=== PATIENT | female | born 1975 | race Caucasian/White ===

== ENCOUNTER 2023-09-18 15:28 | Inpatient (IN) | payer OTHER, SELFPAY ==
[2023-09-18 17:03] LABS: #Basophils 0.1 thou/uL (0.0-0.2); #Eosinphils 0.3 thou/uL (0.0-0.7); #Monocytes 0.4 thou/uL (0.11-0.59); #Neutrophils 3.3 thou/uL (1.40-6.50); %Basophils 0.9 % (0.0-1.0); %Eosinophils 5.2 % (0.0-10.0); %Lymphocytes 30.1 % (21.0-51.0); %Monocytes 6.4 % (0.0-10.0); %Neutrophils 57.2 % (42.0-75.0); Hematocrit 39.3 % (36.0-47.0); Hemoglobin 13.1 g/dL (12.0-16.0); Mean Corpuscular HGB CONC 33.3 g/dL (32.0-36.0); Mean Corpuscular Hemoglobin 32.2 pg (27.0-31.0); Mean Corpuscular Volume 96.6 fl (78.0-98.0); Mean Platelet Volume 8.5 fL (7.4-10.4); Platelet Count 301 10x3/uL (130-400); Red Blood Cell (RBC) Count 4.07 mill/uL (4.20-5.40); White Blood Cell (WBC) Count 5.8 10x3/uL (4.8-10.8)
[2023-09-18 17:11] LABS: BHCG - Serum Negative (NEGATIVE); Pregs Control Bar Appear? YES (CONTROL BAR)
[2023-09-18 17:12] LABS: Pregs Control Background? CLEAR/WHITE (CLR/WHITE)
[2023-09-18 17:32] LABS: ALT (SGPT) 18 U/L (8-55); AST (SGOT) 18 U/L (5-34); Albumin 3.7 g/dL (3.5-5.0); Alkaline Phosphatase 60 U/L (40-110); Anion Gap 11 mmol/L (10-20); BUN (Urea Nitrogen) 9 mg/dL (7.0-18.7); Bilirubin, Total 0.4 mg/dL (0.2-1.2); Calc. Creatinine Clearance 0 mL/min (70-130); Calcium 8.5 mg/dL (7.8-10.44); Carbon Dioxide 27 mmol/L (22-29); Chloride 106 mmol/L (98-107); Estimated GFR 92; Globulin 2.3 g/dL (2.4-3.5); Glucose 131 mg/dL (70-105); Potassium 3.2 mmol/L (3.5-5.1); Sodium 141 mmol/L (136-145)
[2023-09-18] MEDS ORDERED: Ketorolac Tromethamine 30 MG (1 mL) VIAL ONE ×3 (19:26→19:31)
[2023-09-18] MEDS ORDERED: diphenhydrAMINE 50 MG/ML VIAL ONE (19:26)
[2023-09-18] MEDS ORDERED: Metoclopramide HCl 10 MG (2 mL) VIAL ONE (19:26)
[2023-09-18] MEDS ORDERED: Lorazepam 2 MG/ML VIAL SLOW IVP PRN (22:30)
[2023-09-18] MEDS ORDERED: Calcium Carbonate 500 MG ChewTAB PO PRN (22:31)
[2023-09-18] MEDS ORDERED: Senokot S 8.6-50 MG TAB PO PRN (22:31)
[2023-09-18] MEDS ORDERED: Acetaminophen 325 MG TAB PO PRN (22:31)
[2023-09-18] MEDS ORDERED: Ondansetron ODT 4 MG TAB PO PRN (22:31)
[2023-09-19 01:45] VITALS: BMI 23.8
[2023-09-19 05:40] LABS: #Eosinphils 0.5 thou/uL (0.0-0.7); #Monocytes 0.4 thou/uL (0.11-0.59); #Neutrophils 2.4 thou/uL (1.40-6.50); %Basophils 0.8 % (0.0-1.0); %Eosinophils 9.7 % (0.0-10.0); %Lymphocytes 34.1 % (21.0-51.0); %Monocytes 7.3 % (0.0-10.0); %Neutrophils 47.9 % (42.0-75.0); Hematocrit 40.2 % (36.0-47.0); Hemoglobin 13.3 g/dL (12.0-16.0); Mean Corpuscular HGB CONC 33.1 g/dL (32.0-36.0); Mean Corpuscular Hemoglobin 32.6 pg (27.0-31.0); Mean Corpuscular Volume 98.5 fl (78.0-98.0); Mean Platelet Volume 8.7 fL (7.4-10.4); Platelet Count 273 10x3/uL (130-400); RBC Distribution Width 13.1 % (11.5-14.5); Red Blood Cell (RBC) Count 4.08 mill/uL (4.20-5.40); White Blood Cell (WBC) Count 5.1 10x3/uL (4.8-10.8)
[2023-09-19 06:05] LABS: Anion Gap 10 mmol/L (10-20); BUN (Urea Nitrogen) 9 mg/dL (7.0-18.7); Calc. Creatinine Clearance 99 mL/min (70-130); Calcium 8.4 mg/dL (7.8-10.44); Carbon Dioxide 30 mmol/L (22-29); Chloride 107 mmol/L (98-107); Estimated GFR 105; Glucose 90 mg/dL (70-105); Potassium 3.7 mmol/L (3.5-5.1); Sodium 143 mmol/L (136-145)
[2023-09-19] MEDS ORDERED: Magnevist 469MG/ML 20 ML VIAL ONE (09:38)
[2023-09-19] MEDS: Famotidine 20 MG TAB PO SCH ×2 (10:28→19:51)
[2023-09-19] MEDS ORDERED: levETIRAcetam 500 MG TAB PO SCH (10:30)
[2023-09-19] MEDS: Ondansetron PF 4 MG/2 ML Vial IVP SCH ×2 (12:57→19:52)
[2023-09-19] MEDS: Hydrocortisone Sod Succ/PF 100 mg/2 ml Vial IVP SCH ×2 (13:00→19:51)
[2023-09-19] MEDS: diphenhydrAMINE 50 MG/ML VIAL IVP SCH ×2 (13:04→19:52)
[2023-09-19] MEDS: Magnesium 2 GM/50 ML(in water) 2 GM in Premix 1 BAG IVPB SCH ×2 (13:06→19:50)
[2023-09-19] MEDS: levETIRAcetam 500 MG TAB PO SCH (19:52)
[2023-09-20] MEDS: Magnesium 2 GM/50 ML(in water) 2 GM in Premix 1 BAG IVPB SCH ×2 (00:28→08:16)
[2023-09-20] MEDS: diphenhydrAMINE 50 MG/ML VIAL IVP SCH ×2 (00:29→08:32)
[2023-09-20] MEDS: Hydrocortisone Sod Succ/PF 100 mg/2 ml Vial IVP SCH ×2 (00:29→08:33)
[2023-09-20] MEDS: Ondansetron PF 4 MG/2 ML Vial IVP SCH ×2 (00:29→08:33)
[2023-09-20 03:23] LABS: Amphetamine Not Detected (NotDetected); Barbiturates Screen Not Detected (NotDetected); Benzodiazepine Screen Not Detected (NotDetected); Cocaine Metabolite Screen Not Detected (NotDetected); Methadone Not Detected (NotDetected); Methamphetamine Not Detected (NotDetected); Opiate Screen Not Detected (NotDetected); Oxycodone Screen Not Detected (NotDetected); Phencyclidine (PCP) Not Detected (NotDetected); THC/Cannabinoid Screen Detected (NotDetected); Tricyclic Screen Not Detected (NotDetected)
[2023-09-20 05:04] LABS: #Monocytes 0.2 thou/uL (0.11-0.59); #Neutrophils 12.4 thou/uL (1.40-6.50); %Basophils 0.1 % (0.0-1.0); %Lymphocytes 9.2 % (21.0-51.0); %Monocytes 1.4 % (0.0-10.0); Hematocrit 45.8 % (36.0-47.0); Hemoglobin 15.4 g/dL (12.0-16.0); Mean Corpuscular HGB CONC 33.6 g/dL (32.0-36.0); Mean Platelet Volume 8.6 fL (7.4-10.4); Platelet Count 351 10x3/uL (130-400); RBC Distribution Width 12.6 % (11.5-14.5); Red Blood Cell (RBC) Count 4.82 mill/uL (4.20-5.40); White Blood Cell (WBC) Count 13.9 10x3/uL (4.8-10.8)
[2023-09-20 05:39] LABS: Anion Gap 13 mmol/L (10-20); BUN (Urea Nitrogen) 9 mg/dL (7.0-18.7); Calc. Creatinine Clearance 91 mL/min (70-130); Calcium 8.7 mg/dL (7.8-10.44); Carbon Dioxide 23 mmol/L (22-29); Chloride 106 mmol/L (98-107); Estimated GFR 95; Glucose 118 mg/dL (70-105); Magnesium 2.8 mg/dL (1.6-2.6); Potassium 3.8 mmol/L (3.5-5.1); Sodium 138 mmol/L (136-145)
[2023-09-20] MEDS: BuPROPion XL 150 MG ER.TAB PO SCH (08:26)
[2023-09-20] MEDS: Famotidine 20 MG TAB PO SCH ×2 (08:26→21:01)
[2023-09-20] MEDS: levETIRAcetam 500 MG TAB PO SCH ×2 (08:26→21:01)
[2023-09-20] MEDS ORDERED: diphenhydrAMINE 50 MG/ML VIAL IVP SCH (08:30)
[2023-09-20] MEDS ORDERED: Ondansetron PF 4 MG/2 ML Vial IVP SCH (08:30)
[2023-09-20] MEDS ORDERED: Hydrocortisone Sod Succ/PF 100 mg/2 ml Vial IVP SCH (08:30)
[2023-09-20] MEDS ORDERED: Lorazepam 2 MG/ML VIAL SLOW IVP SCH (19:30)
[2023-09-21] MEDS: levETIRAcetam 500 MG TAB PO SCH ×2 (08:41→20:32)
[2023-09-21] MEDS: BuPROPion XL 150 MG ER.TAB PO SCH (08:41)
[2023-09-21] MEDS: Famotidine 20 MG TAB PO SCH ×2 (08:41→20:32)
[2023-09-21] MEDS: Melatonin 3 MG TAB PO PRN (23:02)
[2023-09-22] MEDS ORDERED: FLU VACC QS2023-24(6MOS UP)/PF 60 MCG/0.5 ML SYRINGE IM ONE (09:00)
[2023-09-22] MEDS: levETIRAcetam 500 MG TAB PO SCH ×2 (09:21→20:38)
[2023-09-22] MEDS: BuPROPion XL 150 MG ER.TAB PO SCH (09:21)
[2023-09-22] MEDS: Famotidine 20 MG TAB PO SCH ×2 (09:21→20:38)
[2023-09-22] MEDS: busPIRone HCl 10 MG TAB PO SCH (20:38)
[2023-09-22] MEDS: Melatonin 3 MG TAB PO PRN (20:38)
[2023-09-23] MEDS ORDERED: Levothyroxine Sodium 50 MCG TAB PO SCH (06:00)
[2023-09-23] MEDS: levETIRAcetam 500 MG TAB PO SCH ×2 (11:09→18:55)
[2023-09-23] MEDS: Famotidine 20 MG TAB PO SCH (11:09)
[2023-09-23] MEDS: BuPROPion XL 150 MG ER.TAB PO SCH (11:09)
[2023-09-23] MEDS: busPIRone HCl 10 MG TAB PO SCH (11:10)
[2023-09-23 16:49] VITALS: BP 128/78; TEMP 98.7
== END 2023-09-23 20:57 | disposition home or self-care (01) | DRG 880 ==
LOC: ERS 15:28 → EEVIPCON 23:04 → ERHOLD 23:04 → 2SE 09-19 03:24
PROVIDERS: ADMIT Student in an Organized Health Care Education/Training Program; ATTEND Hospitalist
PROC: 4A00X4Z Measurement of Central Nervous Electrical Activity, External Approach (ICD-10-PCS; principal; 2023-09-23)
DX: F44.5 Conversion disorder with seizures or convulsions (principal); G43.909 Migraine, unspecified, not intractable, without status migrainosus; F41.9 Anxiety disorder, unspecified; F12.90 Cannabis use, unspecified, uncomplicated; E87.6 Hypokalemia; W19.XXXA Unspecified fall, initial encounter; Z98.890 Other specified postprocedural states; Z88.2 Allergy status to sulfonamides
CPT/HCPCS: 36415; 70450; 70553; 80048; 80053; 80306; 83735; 84443; 84703; 85025; 93005; 93010; 95711; 95819; 96365; 96366; 96375; A9579; J1200; J1720; J1885; J2060; J2405; J2765; J3475